=== PATIENT | male | born 1985 | race Caucasian/White ===

== ENCOUNTER 2018-05-12 07:59 | Emergency (ER) | payer BC, OTHER ==
[~2018-05-12] VITALS: Ht 177.8 cm; Wt 90.7 kg
[2018-05-12 08:02] VITALS: BP 133/82
== END 2018-05-12 09:01 | disposition home or self-care (01) ==
LOC: ER 07:59
DX: S01.01XA Laceration without foreign body of scalp, initial encounter (principal); F17.210 Nicotine dependence, cigarettes, uncomplicated; W22.8XXA Striking against or struck by other objects, initial encounter; Y92.89 Other specified places as the place of occurrence of the external cause; Y93.89 Activity, other specified; Y99.8 Other external cause status